=== PATIENT | female | born 2000 | race Caucasian/White ===

== ENCOUNTER 2023-02-14 17:39 | Emergency (ER) | payer BC, SELFPAY ==
[2023-02-14 17:55] VITALS: BP 129/77; PULSE 85; RESP 17; TEMP 37.1; O2SAT 96; BMI 26.5
--- NOTE | 2023-02-14 18:13 | ED.ALLEREA ---
HPI - Allergic Reaction General Chief complaint: Allergic Reaction Stated complaint: allergic reaction, chest feels tight, Related Data Allergies Allergy/AdvReac Type Severity Reaction Status Date / Time Peanut Butter Allergy Wheezing Verified 02/14/23 18:06 peanut AdvReac Wheezing Verified 02/14/23 18:06 Physical Exam ED Vital Signs: Vital Signs - 24 hr 02/14/23 17:55 Temperature 98.8 F Pulse Rate 85 Respiratory Rate 17 Blood Pressure 129/77 Pulse Oximetry 96 Oxygen Delivery Method Room Air BMI result Body Mass Index 26.5 Course Course Course Narrative: This is an RME: Additional HPI, ROS, PE not included below will be deferred to primary provider. This is a [id number]-female presenting to the emergency department with complaints of allergic reaction. patient states that she believes that she ate something that was cross contaminated with peanuts. She states she is having chest tightness and some shortness of breath. She has an EpiPen but did not have it with her today. She is speaking in full sentences. She also reports that she is recovering from bronchitis, finished her last dose of azithromycin today. Lungs with inspiratory and expiratory wheezing throughout all lung hoskins. Airways patent. Plan: Pepcid, Benadryl, solu-medrol
[2023-02-14] MEDS: methylPREDNISolone Sod Succ 125 MG/2 ML VIAL IVPUSH (18:26)
[2023-02-14] MEDS: Famotidine/PF 20 MG in 0.9 % Sodium Chloride 50 ML 200 MG IV (18:26)
[2023-02-14] MEDS: diphenhydrAMINE HCL 50 MG/ML VIAL IVPUSH (18:26)
--- NOTE | 2023-02-14 19:18 | ED.ALLEREA ---
HPI - Allergic Reaction General Chief complaint: Allergic Reaction Stated complaint: allergic reaction, chest feels tight, Time Seen by Provider: 02/14/23 18:34 History of Present Illness HPI narrative: patient is a 22-year-old female with a history of peanut allergies patient may have eaten something that contain peanut. Subsequently had shortness of breath. Feels wheezy. Very similar to previous bouts of allergic reaction. Was given Benadryl. patient denies any shortness of breath at this point. There is no fever no chills. Does not think she is . She is healthy otherwise. No coughing or congestion or history symptoms. Related Data Previous Rx's Medication Instructions Recorded famotidine 20 mg tablet (Pepcid) 20 mg PO BID 5 days #10 tabs 02/14/23 prednisone 20 mg tablet 40 mg (2 x 20 mg) PO DAILY #10 tabs 02/14/23 Allergies Allergy/AdvReac Type Severity Reaction Status Date / Time Peanut Butter Allergy Wheezing Verified 02/14/23 18:06 peanut AdvReac Wheezing Verified 02/14/23 18:06 Review of Systems Review of Systems: positive reason nausea Yes all other systems are reviewed and are negative [facility] Past Medical History Attestation statement: The following information was validated with the patient. Social History Social History Advance Directives: No Advance Directives Information Provided: No Physical Exam ED Vital Signs: Vital Signs - 24 hr 02/14/23 17:55 Temperature 98.8 F Pulse Rate 85 Respiratory Rate 17 Blood Pressure 129/77 Pulse Oximetry 96 Oxygen Delivery Method Room Air BMI result Body Mass Index 26.5 Appearance: Alert. Oriented X3. No acute distress. Eyes: Pupils equal, round and reactive to light. ENT: Pharynx normal. Neck: Normal inspection. Neck supple. No lymph nodes noted. No crepitus CVS: Normal heart rate and rhythm. Pulses normal. Normal S1 and S2 Respiratory: No respiratory distress. Breath sounds normal. No Wheezing. No rales Abdomen: Soft and nontender. No rigidity. No distention. good BS x4 Skin: Skin warm and dry. Normal skin color. Normal skin turgor. Extremities: No lower extremity edema. Neurovascular intact to all extremities. No Lacerations. No Rash Neuro: Oriented X 3. No motor deficit. No sensory deficit. Moving all extermities. No slurred speech Medications Administered Discontinued Medications Generic Name Dose Route Start Last Admin Trade Name Rhea PRN Reason Stop Dose Admin Diphenhydramine HCl 50 mg 02/14/23 18:11 02/14/23 18:26 Diphenhydramine Hcl 50 Mg/Ml Vial IVPUSH 02/14/23 18:12 50 mg ONCE ONE Administration Famotidine 20 mg/ Sodium 52 mls @ 200 mls/hr 02/14/23 18:15 02/14/23 18:26 Chloride IV 02/14/23 18:30 200 mls/hr ONCE ONE Administration Methylprednisolone Sodium Succinate 125 mg 02/14/23 18:11 02/14/23 18:26 Methylprednisolone Sod Succ 125 Mg/2 Ml Vial IVPUSH 02/14/23 18:12 125 mg ONCE ONE Administration Medical Decision Making Medical Decision Making [facility] Narrative: patient well appearing lungs are clear was given a dose of Pepcid Benadryl and Solu-Medrol monitor in the emergency department for over an hour symptom did not get any worse. Will discharge patient home. Already has an EpiPen at home. Patient is in stable condition. Differential Diagnosis Differential Diagnoses: The differential diagnosis associated with the presentation includes Allergic reaction, upset stomach Admission/Observation Consideration of admission/observation: Escalation of care including admission/observation considered no need for admission the symptoms completely resolved Independent Historian Clinical information obtained from an independent historian. 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
== END 2023-02-14 19:37 | disposition home or self-care (01) ==
PROVIDERS: Emergency Provider Emergency Medicine Emergency Medical Services
DX: T78.1XXA Other adverse food reactions, not elsewhere classified, initial encounter (principal); R06.2 Wheezing; X58.XXXA Exposure to other specified factors, initial encounter; R06.02 Shortness of breath
CPT/HCPCS: 96365; 96375; 99283; 99284; J1200; J2930